=== PATIENT | female | born 1945 | race Caucasian/White ===

== ENCOUNTER → 2017-02-18 16:16 | Outpatient (CLI) | payer MEDICARE, BC ==
[2012-11-17 07:01] VITALS: BMI 39.7
== END | disposition home or self-care (01) ==
LOC: D.MAMMO 13:30
DX: R92.8 Other abnormal and inconclusive findings on diagnostic imaging of breast (principal)

== ENCOUNTER 2018-03-21 15:15 | Outpatient (CLI) | payer MEDICARE, BC ==
[2012-11-17 07:01] VITALS: BMI 39.7
== END 2018-03-21 15:30 ==
LOC: D.MAMMO 15:15
DX: Z12.31 Encounter for screening mammogram for malignant neoplasm of breast (principal)

== ENCOUNTER 2019-02-18 19:00 | Outpatient (CLI) | payer MEDICARE, BC ==
[2012-11-17 07:01] VITALS: BMI 39.7
== END 2019-02-18 23:59 | disposition home or self-care (01) ==
LOC: D.MAMMO 19:00
PROVIDERS: ATTEND Family Medicine
DX: N64.4 Mastodynia (principal)